=== PATIENT | female | born 1995 | race Caucasian/White ===

== ENCOUNTER 2018-07-24 21:00 | Inpatient (IN) | payer OTHER ==
--- NOTE | 2018-07-24 18:00 | PDOC.LDHP ---
Labor and Delivery H&P Chief complaint: contractions, other (vaginal bleeding) HPI: Patient arrived to hospital for scheduled medically indicated induction of labor. Current gestational age (weeks): 40 (6 days. ) Due date: 07/31/18 Dating criteria: last menstrual period Grav: 1 Para: 0 Current complications: gestational diabetes (A2 on glyburide) Past Medical History: Depression Current medications: pre- vitamins, other (glyburide 2.5 BID) Previous surgical history: cholecystectomy Allergies/Adverse Reactions: Allergies Allergy/AdvReac Type Severity Reaction Status Date / Time latex Allergy Mild Rash Verified 07/24/18 23:04 morphine Allergy Mild Hives Verified 07/24/18 23:03 Social history: none - Physical Exam Vital signs reviewed and normal: yes General: NAD Heart: RRR Lungs: nonlabored breathing Abdomen: gravid FHT: category 1 - OB Labs Blood type: O RH: positive Antibody Screen: negative HIV: negative RPR: negative HEPSAg: negative 1 hour GCT: positive 3 hour GTT: Postive GBS: negative Urine drug screen: not done Rubella: immune - Assessment L&D Assessment: medically indicated induction (for polyhydramnios and A2GDM) - Plan Plan: admit to L&D, cervical ripening -: Plan: cytotec for cervical ripening. BID FSBS
[~2018-07-24 21:00] MED LIST: HYDROcodone/Acetaminophen 5/325 mg Tablet PO PRN; Ibuprofen 800 MG TAB PO PRN; Lidocaine 1% (PF) 30 ML VIAL SC PRN; Methylergonovine 0.2 MG/ML VIAL IM PRN; Misoprostol 200 MCG TAB PR PRN; NS / Oxytocin 40 units/1000ml 1,000 ML IV PRN; Ondansetron PF 4 MG/2 ML Vial IVP PRN; Promethazine HCl 25 MG/ML VIAL IM PRN
[2018-07-24 23:18] VITALS: BMI 36.8
[2018-07-24] MEDS: Lactated Ringer's 1,000 ML IV SCH (23:55)
[2018-07-25] MEDS: Misoprostol 100 MCG TAB VAG SCH ×5 (00:07→12:15)
[2018-07-25 00:24] LABS: Hemoglobin 10.6 g/dL (12.0-16.0); Mean Corpuscular HGB CONC 32.9 g/dL (32.0-36.0); Mean Corpuscular Hemoglobin 24.9 pg (27.0-31.0); Mean Corpuscular Volume 75.9 fL (78.0-98.0); Mean Platelet Volume 7.7 fL (7.4-10.4); Platelet Count 350 thou/uL (130-400); RBC Distribution Width 14.4 % (11.5-14.5); Red Blood Cell (RBC) Count 4.27 mill/uL (4.20-5.40); White Blood Cell (WBC) Count 11.7 thou/uL (4.8-10.8)
[2018-07-25 00:54] LABS: Syphilis Antibody Nonreactive (Nonreactive); Syphilis Antibody Index 0.06 S/CO (<1.00 Non-Reactive)
[2018-07-25 01:03] LABS: Hep B Surf Ag Non-Reactive S/CO (NonReactive)
[2018-07-25 01:12] LABS: Glucose 167 mg/dL (70-105)
[2018-07-25] MEDS: Lactated Ringer's 1,000 ML IV SCH (08:50)
[2018-07-25] MEDS ORDERED: Zolpidem Tartrate 5 MG TAB PO PRN (19:11)
[2018-07-25] MEDS ORDERED: glyBURIDE 2.5 MG TAB PO SCH (20:30)
--- NOTE | 2018-07-26 06:23 | PDOC.LDPN ---
Labor & Delivery Progress Note -: After four 50mcg PO tablets fo cytotec with no cervical change, the patinet was rested and given a consistent carb dinner. 5 dilaipan osmotic cervical dilators were placed in the cervix on 07/25/18 at 1830. they were removed by the RN at 0600 0n 07/26/18. Minimal cervical chnage had been achieved: 3. A new order for cytoec PV was made. FSBS are stable. Baseline FHTs 130, moderate variability, + Accels, no decelerations. Uterine irritability on toco. BPs stable: 118/72 pulse 68 A: G1 with A2GDM and poly hydramnios for medically indicated IOL P: PV cytotec q3 until keys score is favorable - then start pitocin.
[2018-07-26] MEDS: Butorphanol Tartrate 1 MG/ML VIAL SLOW IVP PRN ×2 (06:47→11:00)
[2018-07-26] MEDS: Misoprostol 100 MCG TAB VAG SCH ×2 (06:51→11:00)
[2018-07-26] MEDS ORDERED: glyBURIDE 2.5 MG TAB PO SCH (08:00)
[2018-07-26] MEDS ORDERED: Fentanyl 4 mcg/Bup 0.1% Cadd 100 ML ONE ×2 (12:43→21:24)
--- NOTE | 2018-07-26 13:19 | PDOC.LDPN ---
Labor & Delivery Progress Note - Subjective Subjective: comfortable - Objective Vital signs reviewed and normal: yes General: NAD -: Discussed options for continued cervical ripening with a cervical balloon vs. starting pitocin. vs. elective . risks and benefits of each are discussed in detail. Patient agrees to epidural pain management prior to balloon placement.
[2018-07-26] MEDS ORDERED: Eucerin (Mineral Oil/Petrolatum,White) 30 gm Jar TOP PRN (14:05)
[2018-07-26] MEDS ORDERED: Promethazine HCl 25 MG/ML VIAL IM PRN (14:05)
[2018-07-26] MEDS ORDERED: Lactated Ringer's 500 ML IV PRN (14:05)
[2018-07-26] MEDS ORDERED: diphenhydrAMINE 50 MG/ML VIAL IVP PRN (14:05)
[2018-07-26] MEDS ORDERED: Naloxone HCl 0.4 mg/ml Vial IVP PRN ×2 (14:05)
[2018-07-26] MEDS ORDERED: Ondansetron PF 4 MG/2 ML Vial IVP PRN (14:05)
[2018-07-26] MEDS ORDERED: ePHEDrine/0.9% NaCl/PF SYRINGE 50 mg/10 ml SLOW IVP PRN (14:05)
[2018-07-26] MEDS ORDERED: Acetaminophen 325 MG TAB PO PRN (14:05)
[2018-07-26] MEDS: Lactated Ringer's 1,000 ML IV SCH ×3 (14:08→22:54)
[2018-07-26] MEDS ORDERED: Communication Order-Pharmacy FS SCH (14:15)
[2018-07-26] MEDS: Fentanyl 4 mcg/Bupivacaine 0.1% Cassette 100 ML EPIDURAL SCH ×2 (14:23→21:28)
[2018-07-26] MEDS ORDERED: NS w/ Oxytocin 10 units 500 ML IV SCH (17:45)
[2018-07-26] MEDS: NS w/ Oxytocin 10 units 500 ML IV SCH (17:59)
[2018-07-26] MEDS ORDERED: Zolpidem Tartrate 5 MG TAB PO SCH (22:30)
[2018-07-27] MEDS ORDERED: Fentanyl 4 mcg/Bup 0.1% Cadd 0 ML ONE ×2 (04:50→11:44)
[2018-07-27] MEDS: Fentanyl 4 mcg/Bupivacaine 0.1% Cassette 100 ML EPIDURAL SCH ×2 (04:56→18:23)
[2018-07-27] MEDS ORDERED: Calcium Carbonate 500 MG ChewTAB PO SCH (06:00)
--- NOTE | 2018-07-27 10:27 | PDOC.LDPN ---
Labor & Delivery Progress Note - Subjective Subjective: comfortable - Objective Vital signs reviewed and normal: yes General: NAD, resting Uterine fundus: non tender Dilation: 5 Effacement: 75% Station: -3 FHT: category 1 AROM: clear fluid IUPC placed: yes FSE placed: yes - Assessment (1) Gestational diabetes mellitus (GDM) Code(s): O24.419 - GESTATIONAL DIABETES MELLITUS IN , UNSP CONTROL Current Visit: Yes Status: Acute (2) Primigravida Code(s): Z34.00 - ENCNTR FOR SUPRVSN OF NORMAL FIRST , UNSP TRIMESTER Current Visit: Yes Status: Acute (3) Polyhydramnios Code(s): O40.9XX0 - POLYHYDRAMNIOS, UNSP TRIMESTER, NOT APPLICABLE OR UNSP Current Visit: Yes Status: Acute Qualifiers: Fetus number: single or unspecified fetus Trimester: third trimester Qualified Code(s): O40.3XX0 - Polyhydramnios, third trimester, not applicable or unspecified Plan: continue plan of care, pitocin for augmentation
[2018-07-27] MEDS: Lactated Ringer's 1,000 ML IV SCH (10:37)
[2018-07-27] MEDS ORDERED: Lidocaine 2% MPF 10 ML AMP (For Epidural Use) ONE ×2 (11:11→21:40)
[2018-07-27] MEDS ORDERED: Bupivacaine HCl 0.25%/Epi 0.0005/PF 10 ML VIAL FS ONE (11:11)
[2018-07-27] MEDS ORDERED: Fentanyl 4 mcg/Bup 0.1% Cadd 100 ML ONE ×3 (11:45→18:18)
[2018-07-27] MEDS: NS w/ Oxytocin 10 units 500 ML IV SCH (17:34)
--- NOTE | 2018-07-27 20:56 | PDOC.LDPN ---
Labor & Delivery Progress Note - Subjective Subjective: comfortable - Objective Vital signs reviewed and normal: yes General: NAD, resting Uterine fundus: non tender Dilation: 5 Effacement: 90% Station: -1 FHT: category 1 [place] contractions every: Q2-3 - Assessment (1) Gestational diabetes mellitus (GDM) Code(s): O24.419 - GESTATIONAL DIABETES MELLITUS IN , UNSP CONTROL Current Visit: Yes Status: Acute (2) Primigravida Code(s): Z34.00 - ENCNTR FOR SUPRVSN OF NORMAL FIRST , UNSP TRIMESTER Current Visit: Yes Status: Acute (3) Polyhydramnios Code(s): O40.9XX0 - POLYHYDRAMNIOS, UNSP TRIMESTER, NOT APPLICABLE OR UNSP Current Visit: Yes Status: Acute Qualifiers: Fetus number: single or unspecified fetus Trimester: third trimester Qualified Code(s): O40.3XX0 - Polyhydramnios, third trimester, not applicable or unspecified (4) Failure to progress in labor Code(s): O62.2 - OTHER UTERINE INERTIA Current Visit: Yes Status: Acute Plan: other (proceed with delivery. ancef and azithromycin for surgical prophylaxsis. )
[2018-07-27] MEDS ORDERED: CEFAZOLIN 2 GM/50 ML BAG ONE (20:57)
[2018-07-27] MEDS ORDERED: Bicitra 30 ML UDCUP ONE (20:58)
[2018-07-27] MEDS ORDERED: Azithromycin 500 MG in Sodium Chloride 0.9% 250 ML 250 ML IVPB SCH (21:15)
[2018-07-27] MEDS ORDERED: CEFAZOLIN/Water 2 GM/20 ML SYRINGE SLOW IVP SCH (21:15)
[2018-07-27] MEDS ORDERED: Bicitra 30 ML UDCUP PO SCH (21:15)
[2018-07-27] MEDS ORDERED: CEFAZOLIN 2 GM/50 ML-DEXTROSE 2 GM in Premix Bag 1 BAG IVPB SCH (21:15)
[2018-07-27] MEDS ORDERED: Ketorolac Tromethamine 30 MG/ML VIAL ONE (21:40)
[2018-07-27] MEDS ORDERED: PHENYLEPHRINE-NS 100 MCG/ML 10 ML SYRINGE ONE (21:40)
[2018-07-27] MEDS ORDERED: Bupivacaine HCl 0.5%/Epinephrine 1:200,000/PF 30 ml Vial ONE (21:40)
[2018-07-27] MEDS ORDERED: Ondansetron PF 4 MG/2 ML Vial ONE (21:40)
[2018-07-27] MEDS ORDERED: Oxytocin 10 UNITS/ML VIAL ONE (21:40)
[2018-07-27] MEDS ORDERED: Morphine PF 1 MG/ML SYR ONE (21:40)
[2018-07-27] MEDS ORDERED: Dexamethasone 4 mg/ml Vial ONE (21:40)
[2018-07-27] MEDS ORDERED: diphenhydrAMINE 50 MG/ML VIAL ONE (21:41)
[2018-07-27] MEDS ORDERED: Midazolam HCl 2 mg/2 ml Vial SLOW IVP SCH (22:15)
[2018-07-27] MEDS ORDERED: Promethazine HCl 25 MG SUPP PR PRN (22:50)
[2018-07-27] MEDS ORDERED: Naloxone HCl 0.4 mg/ml Vial IVP PRN ×2 (22:50)
[2018-07-27] MEDS ORDERED: Meperidine HCl/PF 25 MG/ML VIAL SLOW IVP PRN (22:50)
[2018-07-27] MEDS ORDERED: Ondansetron HCl/PF 4 MG/2 ML Vial IVP PRN (22:50)
[2018-07-27] MEDS ORDERED: Naloxone HCl 0.4 mg/ml Vial IV PRN (22:50)
[2018-07-27] MEDS ORDERED: HYDROmorphone 2 MG/ML VIAL SLOW IVP PRN (22:50)
[2018-07-27] MEDS ORDERED: Hydrocerin (Eucerin) Cream 120 gm Jar TOP PRN (22:50)
[2018-07-27] MEDS ORDERED: Ondansetron PF 4 MG/2 ML Vial IVP PRN (22:50)
[2018-07-27] MEDS ORDERED: diphenhydrAMINE 50 MG/ML VIAL IVP PRN (22:50)
[2018-07-27] MEDS ORDERED: Promethazine HCl 25 MG/ML VIAL IM PRN (22:50)
[2018-07-27] MEDS ORDERED: Communication Order-Pharmacy FS SCH (23:00)
[2018-07-28] MEDS ORDERED: NS / Oxytocin 40 units/1000ml 1,000 ML IV SCH (00:24)
[2018-07-28] MEDS ORDERED: Lactated Ringer's 1,000 ML IV SCH (00:24)
[2018-07-28] MEDS ORDERED: Acetaminophen/Codeine 30-300mg Tablet PO PRN (00:24)
[2018-07-28] MEDS ORDERED: Misoprostol 200 MCG TAB PR PRN (00:24)
[2018-07-28] MEDS ORDERED: Zolpidem Tartrate 5 MG TAB PO PRN (00:24)
[2018-07-28] MEDS ORDERED: Lanolin Ointment 7 GM TUBE TOP PRN (00:24)
[2018-07-28] MEDS ORDERED: Ondansetron PF 4 MG/2 ML Vial IVP PRN (00:24)
[2018-07-28] MEDS ORDERED: diphenhydrAMINE 25 MG CAP PO PRN (00:24)
[2018-07-28] MEDS ORDERED: Acetaminophen 325 MG TAB PO PRN (00:24)
[2018-07-28] MEDS ORDERED: Methylergonovine 0.2 MG/ML VIAL IM PRN (00:24)
[2018-07-28] MEDS: Ketorolac Tromethamine 30 MG/ML VIAL IVP PRN ×2 (06:13→12:18)
[2018-07-28 07:29] LABS: Hemoglobin 9.5 g/dL (12.0-16.0); Mean Corpuscular HGB CONC 32.6 g/dL (32.0-36.0); Mean Corpuscular Hemoglobin 24.7 pg (27.0-31.0); Mean Corpuscular Volume 75.9 fL (78.0-98.0); Mean Platelet Volume 8.2 fL (7.4-10.4); Platelet Count 293 thou/uL (130-400); RBC Distribution Width 14.7 % (11.5-14.5); Red Blood Cell (RBC) Count 3.86 mill/uL (4.20-5.40); White Blood Cell (WBC) Count 21.1 thou/uL (4.8-10.8)
[2018-07-28] MEDS ORDERED: Adacel (T-DAP) 0.5 ML SYRINGE IM ONE (09:00)
[2018-07-28] MEDS: Ferrous Sulfate 325 MG TAB PO SCH ×2 (09:26→19:55)
[2018-07-28] MEDS: Docusate Calcium (SURFAK) 240 MG CAP PO SCH ×2 (09:26→19:55)
[2018-07-28] MEDS: Prenatal Vitamin 1 TAB PO SCH (09:27)
[2018-07-28] MEDS: Misoprostol 100 MCG TAB VAG SCH ×9 (09:27→09:36)
[2018-07-28] MEDS: Lactated Ringer's 1,000 ML IV SCH ×3 (09:30→09:36)
[2018-07-28] MEDS: Acetaminophen/Codeine 30-300mg Tablet PO PRN ×2 (16:52→21:44)
--- NOTE | 2018-07-28 19:33 | PDOC.PP ---
Post Progress Note Post Day #: 1 Subjective: Guero is doing well. Has not been up to walk yet because she was waiting for her to return. Her pain is okay, taking tylenol #3 with no cross reation with her morphine allergy. PO intake tolerated: yes Flatus: yes Ambulation: yes Vital Signs (12 hours) Temp Pulse Resp BP Pulse Ox 07/28/18 17:00 97.6 F 67 16 128/72 07/28/18 11:30 97.4 F L 62 16 124/76 07/28/18 07:50 97.8 F 64 16 143/73 H 95 Weight Weight 215 lb - Physical Examination General: NAD Cardiovascular: no m/r/g, RRR Respiratory: clear to auscultation bilaterally, non-labored breathing Abdominal: + bowel sounds, lochia (scant) Fundus firm & at: -1 Extremities: negative homans (B) Skin: CS incision dry & intact Psychiatric: A&Ox3, normal affect Result Diagrams: 07/28/18 07:05 07/25/18 00:08 Additional Labs: Post Labs Blood Type O POSITIVE 07/25/18 00:08 Hep Bs Antigen Non-Reactive S/CO (NonReactive) 07/25/18 00:08 (1) Gestational diabetes mellitus (GDM) Code(s): O24.419 - GESTATIONAL DIABETES MELLITUS IN , UNSP CONTROL Status: Acute (2) Primigravida Code(s): Z34.00 - ENCNTR FOR SUPRVSN OF NORMAL FIRST , UNSP TRIMESTER Status: Acute (3) Polyhydramnios Code(s): O40.9XX0 - POLYHYDRAMNIOS, UNSP TRIMESTER, NOT APPLICABLE OR UNSP Status: Acute Qualifiers: Fetus number: single or unspecified fetus Trimester: third trimester Qualified Code(s): O40.3XX0 - Polyhydramnios, third trimester, not applicable or unspecified (4) Failure to progress in labor Code(s): O62.2 - OTHER UTERINE INERTIA Status: Acute - Assessment/Plan A: G1 now P1 s/p LTCS fro failure to progress P: encouraged ambulation. Breast feeding on demand - call nursery for assitance will evaluate for discharge tomorrow or the following day (Rx on the chart for discharge). Patient has a two week follow up scheduled in my office for incision check and evaluate for post depression based on hx.
[2018-07-29] MEDS: Acetaminophen/Codeine 30-300mg Tablet PO PRN ×2 (04:20→12:48)
[2018-07-29] MEDS: Simethicone Chewable 80 MG TAB PO PRN ×2 (04:21→22:23)
[2018-07-29] MEDS ORDERED: Bisacodyl 10 MG SUPP PR PRN (05:42)
[2018-07-29] MEDS ORDERED: Ibuprofen 800 MG TAB PO SCH (06:00)
[2018-07-29] MEDS: Ibuprofen 800 MG TAB PO PRN ×3 (06:09→22:18)
--- NOTE | 2018-07-29 08:46 | PRG ---
DATE OF SERVICE: 07/29/2018 POSTOPERATIVE NOTE SUBJECTIVE: The patient is postop day #2, status post primary for failure to progress. She is a patient of Ms. Michelle Youssef. The patient reports today she is having decent pain control, is tolerating p.o., and voiding on her own. Her postdelivery hemoglobin is 9.5, hematocrit 29.3, and platelets of 293,000. OBJECTIVE: GENERAL: She appears to be in no acute distress. She is alert, oriented, cooperative, and pleasant to interact with. HEAD: Normocephalic and atraumatic. ABDOMEN: Fundus is firm. Incision is clean, dry, and intact over Dermabond. EXTREMITIES: Nontender and nonedematous. ASSESSMENT AND PLAN: The patient will be discharged to home tomorrow, and we will continue routine postoperative care. Job ID: [id number]
[2018-07-29] MEDS: Prenatal Vitamin 1 TAB PO SCH (09:04)
[2018-07-29] MEDS: Ferrous Sulfate 325 MG TAB PO SCH ×2 (09:05→22:18)
[2018-07-29] MEDS: Docusate Calcium (SURFAK) 240 MG CAP PO SCH ×2 (09:05→22:18)
[2018-07-29] MEDS ORDERED: HYDROcodone/Acetaminophen 7.5/325 mg Tablet PO PRN (14:35)
[2018-07-29] MEDS: HYDROcodone/Acetaminophen 7.5/325 mg Tablet PO PRN ×2 (14:57→21:07)
[2018-07-30] MEDS: Ibuprofen 800 MG TAB PO PRN (06:07)
[2018-07-30] MEDS: Docusate Calcium (SURFAK) 240 MG CAP PO SCH (08:07)
[2018-07-30] MEDS: Ferrous Sulfate 325 MG TAB PO SCH (08:07)
[2018-07-30] MEDS: Prenatal Vitamin 1 TAB PO SCH (08:07)
[2018-07-30] MEDS: HYDROcodone/Acetaminophen 7.5/325 mg Tablet PO PRN ×2 (08:14→13:16)
[2018-07-30 08:22] VITALS: BP 131/69; TEMP 97.9
[2018-07-30] MEDS ORDERED: Mag-Al 1200 mg/1200 mg/30 ML UDCUP PO PRN (09:33)
== END 2018-07-30 13:56 | disposition home or self-care (01) | DRG 788 ==
LOC: L&D 22:20 → 3SW 07-28 01:24
PROVIDERS: ADMIT Student in an Organized Health Care Education/Training Program; ATTEND Student in an Organized Health Care Education/Training Program
PROC: 10907ZC Drainage of Amniotic Fluid, Therapeutic from Products of Conception, Via Natural or Artificial Opening (ICD-10-PCS; 2018-07-25)
PROC: 3E033VJ Introduction of Other Hormone into Peripheral Vein, Percutaneous Approach (ICD-10-PCS; 2018-07-25)
PROC: 10D00Z1 Extraction of Products of Conception, Low, Open Approach (ICD-10-PCS; principal; 2018-07-27)
DX: O24.425 Gestational diabetes mellitus in childbirth, controlled by oral hypoglycemic drugs (principal); Z3A.40 40 weeks gestation of pregnancy; Z37.0 Single live birth; O61.0 Failed medical induction of labor; O40.3XX0 Polyhydramnios, third trimester, not applicable or unspecified; O62.2 Other uterine inertia
CPT/HCPCS: 36415; 36416; 82947; 85027; 86780; 86850; 86900; 86901; 87340; C1726; J0456; J0595; J0670; J1100; J1200; J1885; J2001; J2250; J2274; J2405; J2590; J7050

== ENCOUNTER 2018-10-17 17:01 | Emergency (ER) | payer OTHER | END 2018-10-17 17:43 | disposition home or self-care (01) | LOC: ERS 17:01 | DX: S99.922A Unspecified injury of left foot, initial encounter (principal); X58.XXXA Exposure to other specified factors, initial encounter | CPT/HCPCS: 99283 ==

== ENCOUNTER 2019-06-04 11:08 | Emergency (ER) | payer OTHER, SELFPAY | END 2019-06-04 11:47 | disposition home or self-care (01) | LOC: ERS 11:08 | DX: H81.10 Benign paroxysmal vertigo, unspecified ear (principal) | CPT/HCPCS: 99283 ==

== ENCOUNTER 2019-08-27 18:32 | Emergency (ER) | payer OTHER ==
[2019-08-27 19:24] LABS: #Basophils 0.1 thou/uL (0.0-0.2); #Eosinphils 0.1 thou/uL (0.0-0.7); #Monocytes 0.7 thou/uL (0.11-0.59); #Neutrophils 8.5 thou/uL (1.40-6.50); %Basophils 1.1 % (0.0-1.0); %Eosinophils 0.9 % (0.0-10.0); %Lymphocytes 24.3 % (21.0-51.0); %Monocytes 5.7 % (0.0-10.0); Hemoglobin 14.4 g/dL (12.0-16.0); Mean Corpuscular HGB CONC 33.4 g/dL (32.0-36.0); Mean Corpuscular Hemoglobin 26.5 pg (27.0-31.0); Mean Corpuscular Volume 79.5 fL (78.0-98.0); Mean Platelet Volume 7.4 fL (7.4-10.4); Platelet Count 450 thou/uL (130-400); RBC Distribution Width 13.4 % (11.5-14.5); Red Blood Cell (RBC) Count 5.44 mill/uL (4.20-5.40); White Blood Cell (WBC) Count 12.5 thou/uL (4.8-10.8)
[2019-08-27 19:41] LABS: Bilirubin Negative (Negative); Blood, Urine Negative (Negative); Clarity Clear (Clear); Glucose, Urine (Dipstick) 200 mg/dL (Negative); Leukocyte Negative Leu/uL (Negative); Nitrite Negative (Negative); Protein, Urine (Dipstick) Negative (Neg-Trace); Urobilinogen Normal mg/dL (Less than 2)
[2019-08-27 19:45] LABS: Pregnancy Test - Urine (BHCG) Negative (Negative); Pregu Control Background? CLEAR/WHITE (CLR/WHITE); Pregu Control Bar Appear? YES (CONTROL BAR); Specific Gravity 1.009 (1.002-1.036)
[2019-08-27 19:56] LABS: Amphetamine Not Detected (NotDetected); Barbiturates Screen Not Detected (NotDetected); Benzodiazepine Screen Not Detected (NotDetected); Cocaine Metabolite Screen Not Detected (NotDetected); Medtox Control Line Valid? VALID (VALID); Medtox Reader # READER 4; Methadone Not Detected (NotDetected); Methamphetamine Not Detected (NotDetected); Opiate Screen Not Detected (NotDetected); Oxycodone Screen Not Detected (NotDetected); Phencyclidine (PCP) Not Detected (NotDetected); THC/Cannabinoid Screen Not Detected (NotDetected); Tricyclic Screen Not Detected (NotDetected)
[2019-08-27 19:59] LABS: Acetaminophen Less than 6.0 mcg/mL (10.0-30.0); Alcohol Less than 10 mg/dL (Less than 10); CK (CPK) 66 U/L (29-168); Salicylate Less than 8.0 mg/dL (15.0-30.0)
[2019-08-27 20:00] LABS: ALT (SGPT) 67 U/L (8-55); AST (SGOT) 33 U/L (5-34); Albumin 4.2 g/dL (3.5-5.0); Alkaline Phosphatase 165 U/L (40-110); Anion Gap 13 mmol/L (10-20); BUN (Urea Nitrogen) 10 mg/dL (7.0-18.7); Bilirubin, Total 0.4 mg/dL (0.2-1.2); Calc. Creatinine Clearance 0 mL/min (70-130); Calcium 9.4 mg/dL (7.8-10.44); Carbon Dioxide 23 mmol/L (22-29); Chloride 103 mmol/L (98-107); Estimated GFR-MDRD 78; Globulin 4.6 g/dL (2.4-3.5); Glucose 174 mg/dL (70-105); Potassium 3.9 mmol/L (3.5-5.1); Protein, Total 8.8 g/dL (6.0-8.3); Sodium 135 mmol/L (136-145)
== END 2019-08-28 04:35 ==
LOC: ERS 18:32
DX: F32.9 Major depressive disorder, single episode, unspecified (principal); I10 Essential (primary) hypertension; F41.9 Anxiety disorder, unspecified; Z79.01 Long term (current) use of anticoagulants; Z79.899 Other long term (current) drug therapy
CPT/HCPCS: 36415; 80053; 80306; 80307; 81003; 81025; 82550; 84443; 85025; 93005

== ENCOUNTER 2019-09-23 07:03 | Emergency (ER) | payer OTHER | END 2019-09-23 09:27 | disposition home or self-care (01) | LOC: ERS 07:03 | DX: B34.9 Viral infection, unspecified (principal); F41.9 Anxiety disorder, unspecified; F32.9 Major depressive disorder, single episode, unspecified; I10 Essential (primary) hypertension; Z79.01 Long term (current) use of anticoagulants | CPT/HCPCS: 87081; 87430; 87804; 99283 ==

== ENCOUNTER 2020-02-05 15:12 | Emergency (ER) | payer OTHER ==
[2020-02-05 16:36] LABS: BHCG - Serum Negative (NEGATIVE); Pregs Control Background? CLEAR/WHITE (CLR/WHITE); Pregs Control Bar Appear? YES (CONTROL BAR)
[2020-02-05 16:38] LABS: #Basophils 0.1 thou/uL (0.0-0.2); #Eosinphils 0.1 thou/uL (0.0-0.7); #Lymphocytes 2.9 thou/uL (1.20-3.40); #Monocytes 1.1 thou/uL (0.11-0.59); #Neutrophils 12.5 thou/uL (1.40-6.50); %Basophils 0.5 % (0.0-1.0); %Eosinophils 0.6 % (0.0-10.0); %Lymphocytes 17.6 % (21.0-51.0); %Monocytes 6.4 % (0.0-10.0); %Neutrophils 74.9 % (42.0-75.0); Hemoglobin 14.4 g/dL (12.0-16.0); Mean Corpuscular HGB CONC 34.7 g/dL (32.0-36.0); Mean Corpuscular Hemoglobin 27.7 pg (27.0-31.0); Mean Corpuscular Volume 79.7 fL (78.0-98.0); Mean Platelet Volume 8.1 fL (7.4-10.4); Platelet Count 376 thou/uL (130-400); RBC Distribution Width 13.5 % (11.5-14.5); Red Blood Cell (RBC) Count 5.21 mill/uL (4.20-5.40); White Blood Cell (WBC) Count 16.7 thou/uL (4.8-10.8)
[2020-02-05 16:52] LABS: ALT (SGPT) 31 U/L (8-55); AST (SGOT) 17 U/L (5-34); Albumin 4.2 g/dL (3.5-5.0); Alkaline Phosphatase 94 U/L (40-110); Anion Gap 15 mmol/L (10-20); BUN (Urea Nitrogen) 12 mg/dL (7.0-18.7); Bilirubin, Total 0.3 mg/dL (0.2-1.2); Calc. Creatinine Clearance 0 mL/min (70-130); Carbon Dioxide 20 mmol/L (22-29); Chloride 100 mmol/L (98-107); Estimated GFR-MDRD 81; Globulin 3.9 g/dL (2.4-3.5); Glucose 209 mg/dL (70-105); Lipase 16 U/L (8-78); Protein, Total 8.1 g/dL (6.0-8.3); Sodium 131 mmol/L (136-145)
[2020-02-06 14:49] LABS: SARS-CoV-2 MS2 Positive; SARS-CoV-2 N Gene Negative; SARS-CoV-2 S Gene Negative; SARS-CoV-2 orf1ab Negative
== END 2020-02-05 17:45 | disposition home or self-care (01) ==
LOC: ERS 15:12
DX: E86.0 Dehydration (principal); R19.7 Diarrhea, unspecified; I10 Essential (primary) hypertension; E11.9 Type 2 diabetes mellitus without complications; F41.9 Anxiety disorder, unspecified; F32.9 Major depressive disorder, single episode, unspecified; Z20.828 Contact with and (suspected) exposure to other viral communicable diseases; Z79.84 Long term (current) use of oral hypoglycemic drugs; Z79.899 Other long term (current) drug therapy
CPT/HCPCS: 36415; 80053; 83690; 84703; 85025; 87635; 99283; U0003

== ENCOUNTER 2022-06-18 08:17 | Emergency (ER) | payer BC, OTHER ==
[2022-06-18 08:52] LABS: #Basophils 0.1 thou/uL (0.0-0.2); #Eosinphils 0.1 thou/uL (0.0-0.7); #Lymphocytes 3.2 thou/uL (1.20-3.40); #Monocytes 0.6 thou/uL (0.11-0.59); #Neutrophils 9.8 thou/uL (1.40-6.50); %Basophils 0.6 % (0.0-1.0); %Neutrophils 71.4 % (42.0-75.0); Hemoglobin 13.4 g/dL (12.0-16.0); Mean Corpuscular HGB CONC 32.9 g/dL (32.0-36.0); Mean Corpuscular Hemoglobin 27.1 pg (27.0-31.0); Mean Corpuscular Volume 82.6 fl (78.0-98.0); Mean Platelet Volume 7.5 fL (7.4-10.4); Platelet Count 433 10x3/uL (130-400); RBC Distribution Width 13.8 % (11.5-14.5); Red Blood Cell (RBC) Count 4.92 mill/uL (4.20-5.40); White Blood Cell (WBC) Count 13.7 10x3/uL (4.8-10.8)
[2022-06-18 08:58] LABS: BHCG - Serum Negative (NEGATIVE); Pregs Control Background? CLEAR/WHITE (CLR/WHITE); Pregs Control Bar Appear? YES (CONTROL BAR)
[2022-06-18] MEDS ORDERED: Ketorolac Tromethamine 30 MG/ML VIAL ONE (09:04)
[2022-06-18 09:13] LABS: ALT (SGPT) 39 U/L (8-55); AST (SGOT) 22 U/L (5-34); Albumin 3.8 g/dL (3.5-5.0); Alkaline Phosphatase 92 U/L (40-110); Anion Gap 12 mmol/L (10-20); BUN (Urea Nitrogen) 7 mg/dL (7.0-18.7); Bilirubin, Total 0.6 mg/dL (0.2-1.2); Calc. Creatinine Clearance 0 mL/min (70-130); Calcium 9.6 mg/dL (7.8-10.44); Carbon Dioxide 24 mmol/L (22-29); Chloride 103 mmol/L (98-107); Estimated GFR 100; Globulin 3.9 g/dL (2.4-3.5); Glucose 175 mg/dL (70-105); Potassium 3.6 mmol/L (3.5-5.1); Protein, Total 7.7 g/dL (6.0-8.3); Sodium 135 mmol/L (136-145)
== END 2022-06-18 10:09 | disposition home or self-care (01) ==
LOC: ERS 08:17
DX: R07.89 Other chest pain (principal); E11.9 Type 2 diabetes mellitus without complications; Z79.84 Long term (current) use of oral hypoglycemic drugs
CPT/HCPCS: 36415; 71045; 80053; 84484; 84703; 85025; 85379; 93005; 96374; J1885

== ENCOUNTER 2022-09-07 18:00 | Outpatient (CLI) | payer BC | END 2022-09-07 18:01 | disposition home or self-care (01) | LOC: SLEEPLAB 18:00 | PROVIDERS: ATTEND Nurse Practitioner Family | DX: G47.9 Sleep disorder, unspecified (principal); G47.33 Obstructive sleep apnea (adult) (pediatric) | CPT/HCPCS: 95800 ==